=== PATIENT | female | born 1960 | race Caucasian/White ===

== ENCOUNTER 2021-01-24 19:05 | Emergency (ER) | payer MEDICARE ==
[~2021-01-24 19:05] MED LIST: NORCO 10-325 T1 EACH PO
[2021-01-24] MEDS ORDERED: PREDNISONE 50 M50 MG PO (19:49)
[2021-01-24] MEDS ORDERED: TESSALON PERLE100 MG PO (19:49)
== END 2021-01-24 20:10 | disposition home or self-care (01) ==
LOC: ER1 19:05
DX: J06.9 Acute upper respiratory infection, unspecified (principal); J30.9 Allergic rhinitis, unspecified; E78.5 Hyperlipidemia, unspecified; I11.0 Hypertensive heart disease with heart failure; I50.9 Heart failure, unspecified; I25.2 Old myocardial infarction; I48.91 Unspecified atrial fibrillation; E11.9 Type 2 diabetes mellitus without complications; K21.9 Gastro-esophageal reflux disease without esophagitis; Z90.49 Acquired absence of other specified parts of digestive tract; Z90.710 Acquired absence of both cervix and uterus; F17.210 Nicotine dependence, cigarettes, uncomplicated; Z88.0 Allergy status to penicillin; Z88.8 Allergy status to other drugs, medicaments and biological substances
CPT/HCPCS: 99283; J1100